=== PATIENT | female | born 1985 | race Caucasian/White ===

== ENCOUNTER 2021-08-01 13:21 | Emergency (ER) | payer OTHER ==
[~2021-08-01 13:21] MED LIST: ALBUTEROL2.5 MG/3 M INH; ANUCORT-HC25 MG PR; AZELASTINE137 MCG/0.; DOCUSATE SODIU250 MG PO; ELAVIL 50 MG TA50 MG PO; ELURYNG VAGINA1 EACH VG; FAMOTIDINE40 MG PO; FLONASE 0.05% N16 GM; HYDROXYZINE HCL25 MG PO; KLONOPIN0.5 MG PO; LEVOCETIRIZINE D5 MG PO; LEXAPRO10 MG PO; MUCINEX D ER T1 EACH PO; MUCINEX DM ER1 EAC1 PO; NORCO 5-325 TA1 EACH PO; OMEPRAZOLE40 MG PO; PROAIR HFA8.5 GM INH; QVAR REDIHALE10.6 G1 INH; QVAR8.7 G1 INH; REXULTI PO; SEROQUEL25 MG PO; SINEQUAN CAP 1010 MG PO; SINGULAIR10 MG PO; SUMATRIPTAN SU100 MG PO; VENLAFAXINE HCL75 MG PO; VITAMIN B-1000 MCG/M IM; VITAMIN B-121000 MCG PO; VITAMIN D3 PO; ZYRTEC10 MG PO
[2021-08-01 14:05] LABS: HEMOGLOBIN 13.9 gm/dl (12.3-15.3); RED BLOOD COUNT 4.64 M/UL (4.00-5.10); WHITE BLOOD COUNT 8.9 K/UL (4.5-11.0)
[2021-08-01 14:34] LABS: BUN/CREATININE RATIO 14 (0-10)
[2021-08-01] MEDS ORDERED: TORADOL 10 MG T10 MG PO (16:09)
== END 2021-08-01 17:28 | disposition home or self-care (01) ==
LOC: ER1 13:21
PROVIDERS: Physician Assistant
DX: J40 Bronchitis, not specified as acute or chronic (principal); R06.4 Hyperventilation; E78.5 Hyperlipidemia, unspecified; F17.200 Nicotine dependence, unspecified, uncomplicated; Z90.49 Acquired absence of other specified parts of digestive tract
CPT/HCPCS: 71045; 80053; 82550; 82553; 83874; 84484; 84703; 85025; 85379; 93005; 96374; 99285; J1885; Q0177

== ENCOUNTER → 2021-09-07 | Outpatient (CLI) | payer OTHER ==
[~2021-09-07] MED LIST changes: +TORADOL 10 MG T10 MG PO
== END ==
LOC: EXRD 14:45
DX: M54.50 Low back pain, unspecified (principal)
CPT/HCPCS: 72100; 72202

== ENCOUNTER → 2021-10-08 | Outpatient (CLI) | payer OTHER ==
[2021-10-08 16:27] LABS: HEMOGLOBIN 14.2 gm/dl (12.3-15.3); RED BLOOD COUNT 4.75 M/UL (4.00-5.10); WHITE BLOOD COUNT 9.5 K/UL (4.5-11.0)
[2021-10-08 16:53] LABS: BUN/CREATININE RATIO 14 (0-10)
== END ==
LOC: LAB 14:30
PROVIDERS: Nurse Practitioner Primary Care
DX: R42 Dizziness and giddiness (principal)
CPT/HCPCS: 36415; 80053; 82607; 82728; 82746; 83540; 83550; 84439; 84443; 85025; 93005

== ENCOUNTER → 2021-10-22 | Outpatient (CLI) | payer OTHER | LOC: ECHO 09:44 | DX: R94.31 Abnormal electrocardiogram [ECG] [EKG] (principal) | CPT/HCPCS: ECHO; 93306 ==

== ENCOUNTER → 2021-12-22 | Outpatient (CLI) | payer OTHER | LOC: RAD 13:06 | DX: R06.2 Wheezing (principal) | CPT/HCPCS: 71046 ==